=== PATIENT | female | born 1955 | race Caucasian/White ===

== ENCOUNTER 2019-11-15 07:51 | Outpatient (CLI) | payer MEDICARE, BC ==
--- NOTE | 2019-11-15 09:32 | CT ---
CT CHEST WITH IV CONTRAST: HISTORY: Lung nodule. Patient had a CT scan of the abdomen and pelvis done in [place] that showed lung nodule s. This is exam is not available for correlation or comparison. FINDINGS: There are no previous exams for comparison. No mediastinal, hilar, or axillary mass or lymphadenopathy is seen. There are vascular calcification s without evidence of thoracic aortic aneurysm or dissection. No pleural or pericardial effusions ar e seen. There is a 2 mm solid parenchymal nodule in the posterior aspect of the right lower lobe. There is a 4 mm solid nodule in the left lower lobe. A 5 mm perifissural nodule is seen in the left lower lobe . There is mild scarring in the left lung base with mild bronchiectasis. There is a small patchy gr ound-glass opacity in the peripheral aspect of the right lower lobe. The tracheobronchial tree is pa tent. There is a 12 mm indeterminate lesion in the posterior segment of the right lobe of the liver and a 1 cm low-density lesion in the dome of the liver anteriorly. IMPRESSION: 1. Small lung nodules. A followup exam is recommended in 12 months. 2. Please correlate liver findings to the CT of the abdomen and pelvis. POS: [facility]
== END 2019-11-15 07:52 | disposition home or self-care (01) ==
LOC: BICCT 07:51
PROVIDERS: ATTEND Family Medicine
DX: R91.8 Other nonspecific abnormal finding of lung field (principal)
CPT/HCPCS: 71260; 82565

== ENCOUNTER 2019-12-15 07:11 | Outpatient (CLI) | payer MEDICARE, BC ==
--- NOTE | 2019-12-15 07:55 | ULT ---
ULTRASOUND ABDOMEN LIMITED: (RIGHT UPPER QUADRANT) DATE: 12/15/2019 HISTORY: 64-year-old female with liver lesion found on CT pulmonary angiogram FINDINGS: Gallbladder: Normal wall thickness. No gallstones or sludge identified. No pericholecystic fluid. Liver: Normal parenchymal echogenicity. In the posterior aspect right lobe of liver, there is a hyper echoic nonshadowing lesion with irregular margins. It was not recognized by the director of market analysis, and therefore not measured. Right kidney: No hydronephrosis. Pancreas: Visualized, with no gross sonographic abnormality identified (although ultrasound is relati vely insensitive for the detection of pancreatic pathology compared to CT and MRI.). Common duct caliber: 3 mm. IMPRESSION: 1. At least one of the several hepatic lesions found on CT pulmonary angiogram are visualized on ultr asound. 2. As recommended on that CTA report, dedicated multiphase CT of abdomen with and without contrast, l iver mass protocol, is strongly recommended.
== END 2019-12-15 07:12 | disposition home or self-care (01) ==
LOC: BICULT 07:11
PROVIDERS: ATTEND Family Medicine
DX: K76.9 Liver disease, unspecified (principal)
CPT/HCPCS: 76705

== ENCOUNTER 2020-03-05 10:10 | Outpatient (CLI) | payer MEDICARE, BC ==
--- NOTE | 2020-03-05 13:37 | CT ---
EXAM: CT Abdomen W WO Con PROVIDED CLINICAL HISTORY: Weight loss of 20 pounds over last 3 months. Pulmonary nodules and hepatic lesions. COMPARISON: CT thorax on 11/15/2019 FINDINGS: A subcentimeter pulmonary nodule is seen at each lung base which were seen on recent CT thorax. Minim al bibasilar atelectasis and/or scarring is present. No pleural effusion is identified. A small hiatal hernia is present. The previously described hepatic lesions are less perceptible on today's examination. Lesion in the a nterior dome of the liver is not definitively appreciated; although, there is a subtle low-attenuation subcentimeter focus seen on arterial phase of imaging which may correspond to finding s on prior exam. The lesion is not seen on the portal venous phase of imaging, and this could be related to a small hemangioma. Ill-defined low-density lesion in the peripheral aspect posterior segm ent right hepatic lobe is seen and best seen on coronal imaging. This lesion measures less than 1 cm and is difficult to accurately characterize. No additional hepatic lesions are seen. Spleen, pancreas, bilateral adrenal glands, and kidneys demonstrate a normal CT appearance. Vascular calcifications are seen in the abdominal aorta. 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 There are several serpiginous but nondilated vessels in the left upper quadrant adjacent to the splee n which are nonspecific but may represent small splenic varices. No free fluid fluid collection, or lymphadenopathy is seen in the abdomen or pelvis Small hiatal hernia is present. No suspicious lytic or sclerotic osseous lesions are identified. IMPRESSION: 1. Subcentimeter pulmonary nodule noted each lung base seen on prior CT thorax. 2. Subtle hepatic lesions better visualized on prior exam. These lesions are not well assessed and me asure less than 1 cm. Findings could potentially represent small hemangiomas. However, follow-up evaluation in 6 months is recommended. Patient reportedly has prior imaging at an outside institution , and direct comparison with prior studies would be helpful to determine stability of these lesions.
== END 2020-03-05 10:11 | disposition home or self-care (01) ==
LOC: SCSCT 10:10
PROVIDERS: ATTEND Family Medicine
DX: K76.9 Liver disease, unspecified (principal); R91.8 Other nonspecific abnormal finding of lung field
CPT/HCPCS: 74170; 82565

== ENCOUNTER 2020-11-05 08:38 | Outpatient (CLI) | payer MEDICARE, BC ==
[2020-11-05] MEDS ORDERED: Iopamidol-370 76% 500 ML 1 ML ONE (08:53)
== END 2020-11-05 08:39 | disposition home or self-care (01) ==
LOC: BICCT 08:38
PROVIDERS: ATTEND Internal Medicine Critical Care Medicine
DX: K76.9 Liver disease, unspecified (principal); R91.1 Solitary pulmonary nodule; R91.8 Other nonspecific abnormal finding of lung field
CPT/HCPCS: 71260; 82565

== ENCOUNTER 2022-02-20 08:42 | Outpatient (CLI) | payer MEDICARE, BC ==
[2022-02-20] MEDS ORDERED: Iopamidol-370 76% 500 ML 1 ML ONE (09:05)
== END 2022-02-20 08:43 | disposition home or self-care (01) ==
LOC: BICCT 08:42
PROVIDERS: ATTEND Internal Medicine Critical Care Medicine
DX: Z12.31 Encounter for screening mammogram for malignant neoplasm of breast (principal); R91.1 Solitary pulmonary nodule
CPT/HCPCS: 71260; 77063; 77067; 82565; Q9967

== ENCOUNTER 2023-11-08 14:19 | Outpatient (CLI) | payer MEDICARE, BC | END 2023-11-08 14:20 | disposition home or self-care (01) | LOC: BICMAMMO 14:19 | PROVIDERS: ATTEND Orthopaedic Surgery Adult Reconstructive Orthopaedic Surgery | DX: Z12.31 Encounter for screening mammogram for malignant neoplasm of breast (principal); Z80.3 Family history of malignant neoplasm of breast; Z91.89 Other specified personal risk factors, not elsewhere classified | CPT/HCPCS: 77063; 77067 ==